=== PATIENT | female | born 1930 | race Caucasian/White ===

== ENCOUNTER 2017-05-28 07:30 | Emergency (ER) | payer BC ==
[2017-05-28 07:36] VITALS: BMI 31.2
[2017-05-28] MEDS ORDERED: KETOROLAC TROMETHAMINE 30 MG/1 ML VIAL IVPUSH ONE (08:00)
--- NOTE | 2017-05-28 08:11 | PDOC ---
History of Present Illness - General Chief Complaint: Pain Stated Complaint: PAIN Time Seen by Provider: 05/28/17 07:48 History Source: Patient - History of Present Illness Occurred: reports: other Severity: Yes: severe Lower Extremity Pain Location: left: knee Past History - Past Medical History Allergies/Adverse Reactions: Allergies Allergy/AdvReac Type Severity Reaction Status Date / Time albuterol Allergy Severe Hives Verified 05/28/17 07:38 morphine Allergy Severe Vomiting Verified 05/28/17 07:38 oxycodone Allergy Severe Vomiting Verified 05/28/17 07:38 Penicillins Allergy Severe Hives Verified 05/28/17 07:38 Sulfa (Sulfonamide Allergy Severe Vomiting Verified 05/28/17 07:38 Antibiotics) Home Medications: Ambulatory Orders Amlodipine Besylate [Norvasc -] 2.5 mg PO DAILY 05/28/17 Aspirin [ASA -] 81 mg PO DAILY 05/28/17 Cephalexin 250 mg PO BID 05/28/17 Cetirizine HCl [Zyrtec -] 10 mg PO DAILY 05/28/17 Cholecalciferol (Vitamin D3) [Vitamin D3 -] 2,000 unit PO DAILY 05/28/17 Levofloxacin [Levaquin] 500 mg PO BID 05/28/17 Losartan Potassium 50 mg PO TID 05/28/17 Montelukast Na [Singulair -] 10 mg PO HS 05/28/17 Pravastatin Sodium 20 mg PO DAILY 05/28/17 Cancer: Yes (breast, colon, skin, in remission) HTN: Yes Hypercholesterolemia: Yes - Surgical History Abdominal Surgery: Yes (colon resection) Appendectomy: Yes Cholecystectomy: Yes - Immunization History Immunization Up to Date: Yes - Psycho/Social/Smoking Cessation Hx Suicidal Ideation: No Smoking History: Never smoked Hx Alcohol Use: No Drug/Substance Use Hx: No Review of Systems - Review of Systems Constitutional: No: Chills, Fever Respiratory: No: Shortness of Breath Cardiac (ROS): No: Chest Pain Musculoskeletal: Yes: Joint Pain, Joint Swelling *Physical Exam - Vital Signs Last Vital Signs Temp Pulse Resp BP Pulse Ox 98.2 F 100 H 18 162/79 99 05/28/17 07:32 05/28/17 07:32 05/28/17 07:32 05/28/17 07:32 05/28/17 07:32 - Physical Exam General Appearance: Yes: Appropriately Dressed, Mild Distress HEENT: positive: Normal Voice Neck: positive: Supple Respiratory/Chest: negative: Respiratory Distress Extremity: positive: Tender, Swelling, Other (pain w/ ROM, no erythema or increased warmth) Integumentary: positive: Dry, Warm Neurologic: positive: Fully Oriented, Alert, Normal Mood/Affect ED Treatment Course - LABORATORY CBC & Chemistry Diagram: 05/28/17 08:10 05/28/17 08:10 Medical Decision Making - Medical Decision Making 05/28/17 08:07 87-year-old female, history of hypertension, on baby aspirin currently on Levaquin for UTI and states she takes Keflex prophylactically for uti otherwise , here complaining of worsening left knee pain 1 month. Has been seen by an orthopedics and given a "gel injection" with no relief and on a muscle relaxant at home, but states it does not help. States she is barely able to bear weight with her cane. States knee is also swollen. No fever or chills. No history of septic joint. No history of gout. PMD at [facility]: Dr Freedman [id number] See exam L knee pain and swelling Seen by ortho-had XR and given "gel injection" in clinic for "loss of cartilage " per pt No f/c Pt stable and well gisela w/ diffuse swelling to L knee, no hot, red joint M/l arthritis vs gout, less likely infectious -pain control -labs including uric acid/esr/crp -reassess 05/28/17 08:12 05/28/17 08:17 05/28/17 08:40 EKG ordered on pt erroneously by charge nurse. There is a RBBB w/ TWI in lead 111 and V3, no old to compare on record. Pt has no chest pain or sob. Cardiac enzyme sent. Do not see need to further pursue non-specific ekg changes in pt who is only here for L knee pain and no cardiac/resp symptoms. Will try and contact PMD for old ekg 05/28/17 09:36 Labs and XR unremarkable. Pt states pain has not improved. Able to bear weight w / cane in ED but painful. States she is unable to tolerate all narcotics (get n/ v/rash/dizziness/syncope). Son now informs me that he was able to call Dr. Quezada of orthopedic and made appointment for patient to be seen today at 2:30 PM. Would prefer to take patient home so that they can make appointment. Of note, ekg faxed from PMD's office demonstrates similar findings today, RBBB w/ TWI in leads 111 and V3. Dispo d/w ED attg and pt discharged in care of son 05/28/17 09:47 *DC/Admit/Observation/Transfer Diagnosis at time of Disposition: Knee pain, left Qualifiers: Chronicity: unspecified Qualified Code(s): M25.562 - Pain in left knee - Discharge Dispostion Condition at time of disposition: Unchanged/Unknown - Referrals Referrals: Eliazar Freedman [Primary Care Provider] - - Patient Instructions Printed Discharge Instructions: DI for Knee Pain Additional Instructions: Please follow up with orthopedics today as already scheduled
[2017-05-28] MEDS ORDERED: KETOROLAC TROMETHAMINE 30 MG/1 ML VIAL ONE (08:21)
[2017-05-28 08:23] LABS: EOSINOPHIL 2.1 % (0-4.5); MCH 32.8 pg (25.7-33.7); MCHC 34.4 g/dl (32.0-36.0); MEAN CELL VOLUME 95.4 fl (80-96); MEAN PLT VOLUME 6.9 fl (7.5-11.1); NEUTROPHILS 74.9 % (42.8-82.8); PLATELET COUNT 248 K/MM3 (134-434); RDW 17.5 % (11.6-15.6); WHITE BLOOD COUNT 7.7 K/mm3 (4.0-10.0)
[2017-05-28 08:46] LABS: C-REACTIVE PROTEIN 0.6 MG/DL (0.00-0.3); URIC ACID 3.3 mg/dL (2.6-7.2)
[2017-05-28 08:48] LABS: ALBUMIN 3.8 g/dl (3.4-5.0); ANION GAP 10 (8-16); BILIRUBIN,TOTAL 1.1 mg/dL (0.2-1.0); CALCIUM 8.9 mg/dL (8.5-10.1); CO2 25 mmol/L (21-32); CREATININE 0.8 mg/dL (0.55-1.02); GLUCOSE,RANDOM 117 mg/dL (74-106); SGOT/AST 16 U/L (15-37); SGPT/ALT 21 U/L (12-78); TOT PROT 6.9 g/dl (6.4-8.2)
[2017-05-28 08:50] LABS: ALK PHOS 65 U/L (45-117); CPK 89 IU/L (26-192); TROPONIN I < 0.02 ng/ml (0.00-0.05)
[2017-05-28 09:59] VITALS: BP 132/74; PULSE 68; TEMP 97.6
--- NOTE | 2017-05-28 10:07 | PDOC ---
*Physical Exam - Vital Signs Last Vital Signs Temp Pulse Resp BP Pulse Ox 97.6 F 68 16 132/74 98 05/28/17 09:58 05/28/17 09:58 05/28/17 09:58 05/28/17 09:58 05/28/17 09:58 ED Treatment Course - LABORATORY CBC & Chemistry Diagram: 05/28/17 08:10 05/28/17 08:10 - ADDITIONAL ORDERS Additional order review: Laboratory Results 05/28/17 05/28/17 05/28/17 08:18 08:18 08:10 Sodium 134 L Potassium 3.6 Chloride 99 Carbon Dioxide 25 Anion Gap 10 BUN 14 Creatinine 0.8 Creat Clearance w eGFR > 60 Random Glucose 117 H Uric Acid 3.3 Calcium 8.9 Total Bilirubin 1.1 H AST 16 ALT 21 Alkaline Phosphatase 65 Creatine Kinase 89 Troponin I < 0.02 C-Reactive Protein 0.6 H Cancelled Total Protein 6.9 Albumin 3.8 05/28/17 08:10 RBC 3.86 MCV 95.4 MCHC 34.4 RDW 17.5 H MPV 6.9 L Neutrophils % 74.9 Lymphocytes % 12.0 Monocytes % 10.0 Eosinophils % 2.1 Basophils % 1.0 - Medications Given in the ED: ED Medications Discontinued Medications Generic Name Dose Route Start Last Admin Trade Name Gama PRN Reason Stop Dose Admin Ketorolac Tromethamine 30 mg 05/28/17 08:00 05/28/17 08:19 Toradol Injection - IVPUSH 05/28/17 08:01 30 mg ONCE ONE Administration Medical Decision Making - Medical Decision Making 05/28/17 10:03 Patient seen and examined with LUIS Westfall. I agree with history, assessment, and plan. Summary as follows: 87-year-old female p/w left knee pain 1 month. Patient saw her orthopedic doctor who gave her a gel injection in clinic however she reports minimal improvement with the injection. Denies any fevers, chills, redness to her knee. She reports some swelling to the knee. On exam patient able to range although ranging is limited by pain and there is no redness to the joint. She is able to bear weight on her knee. Labs with no white count, normal ESR, and very mildly elevated CRP. Unlikely to be a septic joint. Patient's son was able to call her orthopedic surgeon who will see the patient today at 2 PM. Patient is stable for discharge. *DC/Admit/Observation/Transfer Diagnosis at time of Disposition: Knee pain, left Qualifiers: Chronicity: unspecified Qualified Code(s): M25.562 - Pain in left knee - Discharge Dispostion Disposition: HOME Condition at time of disposition: Stable - Referrals Referrals: Eliazar Freedman [Primary Care Provider] - - Patient Instructions Printed Discharge Instructions: DI for Knee Pain Additional Instructions: Please follow up with orthopedics today as already scheduled - Post Discharge Activity
--- NOTE | 2017-05-29 09:33 | EKG ---
Test Reason : Blood Pressure : / mmHG Vent. Rate : 098 BPM Atrial Rate : 098 BPM P-R Int : 170 ms QRS Dur : 130 ms QT Int : 370 ms P-R-T Axes : 028 067 005 degrees QTc Int : 472 ms NORMAL SINUS RHYTHM RIGHT BUNDLE BRANCH BLOCK ABNORMAL ECG NO PREVIOUS ECGS AVAILABLE Confirmed by AURE LINO MD ([id number]) on 05/29/2017 9:32:49 AM Referred By: Confirmed By:AURE LINO MD
== END 2017-05-28 10:03 | disposition home or self-care (01) ==
LOC: JER 07:30
PROC: 3E0333Z Introduction of Anti-inflammatory into Peripheral Vein, Percutaneous Approach (ICD-10-PCS; principal; 2017-05-28)
DX: M25.562 Pain in left knee (principal); I10 Essential (primary) hypertension; Z79.82 Long term (current) use of aspirin; Z85.3 Personal history of malignant neoplasm of breast; Z85.038 Personal history of other malignant neoplasm of large intestine; Z85.828 Personal history of other malignant neoplasm of skin; E78.00 Pure hypercholesterolemia, unspecified
CPT/HCPCS: 36415; 73560-TC-LT; 80053; 84484; 84550; 85025; 85651; 86140; 93005; 93010; 99282-25

== ENCOUNTER 2019-07-12 11:10 | Inpatient (IN) | payer BC, OTHER ==
--- NOTE | 2019-07-12 08:04 | HP ---
Satellite [facility] - Chief Complaint Chief Complaint: left knee pain - Past Medical History Allergies/Adverse Reactions: Allergies Allergy/AdvReac Type Severity Reaction Status Date / Time albuterol Allergy Severe Hives Verified 05/28/17 07:38 morphine Allergy Severe Vomiting Verified 05/28/17 07:38 oxycodone Allergy Severe Vomiting Verified 05/28/17 07:38 Penicillins Allergy Severe Hives Verified 05/28/17 07:38 Sulfa (Sulfonamide Allergy Severe Vomiting Verified 05/28/17 07:38 Antibiotics) seasonal Allergy Uncoded 07/04/19 16:55 - Current Medications Current Medications: Home Medications Medication Instructions Recorded Amlodipine Besylate [Norvasc -] 2.5 mg PO DAILY 05/28/17 Aspirin [ASA -] 81 mg PO DAILY 05/28/17 Cholecalciferol (Vitamin D3) 2,000 unit PO DAILY 05/28/17 [Vitamin D3 -] Losartan Potassium 50 mg PO TID 05/28/17 Montelukast Na [Singulair -] 10 mg PO HS 05/28/17 Pravastatin Sodium 20 mg PO DAILY 05/28/17 Satellite Physical Exam - Physical Examination General Appearance: Well Nourished, Well Developed, Alert & Oriented x3 ENT: Clear Lung: Normal air movement Heart: Regular rate & rhythm Extremities: Other (left knee- + swelling, + ttp, decr rom, nvi, xrays show grade 4 tricompartmental djd) Neurological: Intact, Alert, Oriented Satellite Impression/Plan - Impression/Plan Impression: left knee djd Operative Procedure: left jackie tkr Date to be Performed: 07/12/19
[~2019-07-12 11:10] MED LIST: CEFAZOLIN 2 GM in DEXTROSE 5%-WATER - 50 ML IVPB ONE; TRANEXAMIC ACID 1000 MG/10 ML VIAL IVPUSH ONE
[2019-07-12] MEDS ORDERED: ONDANSETRON 4 MG/2 ML VIAL ONE (12:02)
[2019-07-12] MEDS ORDERED: TRANEXAMIC ACID 1000 MG/10 ML VIAL ONE ×2 (12:02→13:04)
[2019-07-12] MEDS ORDERED: PROPOFOL 20 ML ONE ×2 (12:02)
[2019-07-12] MEDS ORDERED: MIDAZOLAM HCL 2 MG/2 ML SINGLE DOSE VIAL ONE ×2 (12:02→13:07)
[2019-07-12] MEDS ORDERED: DEXAMETHASONE SOD PHOSPHATE 4 MG/1 ML VIAL ONE (12:02)
[2019-07-12] MEDS ORDERED: BUPIVACAINE LIPOSOME/PF (EXPAREL) 266 MG/20 ML VIAL ONE (13:06)
[2019-07-12] MEDS ORDERED: VANCOMYCIN 1,000 MG VIAL (RESTRICTED TO ID ONLY) ONE (13:22)
[2019-07-12] MEDS ORDERED: ceFAZolin SODIUM 1 GM VIAL ONE (13:22)
[2019-07-12] MEDS ORDERED: MAG HYDROX/AL HYDROX/SIMETH 30 ML UNIT-DOSE CUP PO PRN (14:10)
[2019-07-12] MEDS ORDERED: MAGNESIUM HYDROX 2400MG/30ML ORAL SUSPENSION 30 ML CUP PO PRN (14:10)
[2019-07-12] MEDS ORDERED: LACTATED RINGERS SOLUTION 1,000 ML IV SCH (14:15)
[2019-07-12] MEDS ORDERED: PHENYLEPHRINE HCL 10 MG/1 ML SINGLE DOSE VIAL ONE (14:54)
[2019-07-12] MEDS ORDERED: HYDROmorphone HCL 2 MG TABLET PO PRN (15:03)
[2019-07-12] MEDS ORDERED: VANCOMYCIN 1,000 MG VIAL (RESTRICTED TO ID ONLY) IVPB ONE (15:26)
--- NOTE | 2019-07-12 15:55 | OP ---
Operative Note - Note: Operative Date: 07/12/19 Pre-Operative Diagnosis: left knee djd Operation: left jackie tkr Post-Operative Diagnosis: Same as Pre-op Surgeon: Bharathi Christensen Apprentice Funeral Director: Jordin Gomez Anesthesia: Spinal, Local Specimens Removed: bone fragments Estimated Blood Loss (mls): 100 Operative Report Dictated: Yes
[2019-07-12] MEDS: ACETAMINOPHEN 325 MG TABLET (FP) PO SCH ×2 (16:40→21:22)
[2019-07-12] MEDS: HYDROmorphone HCL 2 MG TABLET PO PRN (17:10)
--- NOTE | 2019-07-12 19:46 | SPEC ---
DATE OF OPERATION: 07/12/2019 PREOPERATIVE DIAGNOSIS: Degenerative joint disease, left knee. POSTOPERATIVE DIAGNOSIS: Degenerative joint disease, left knee. PROCEDURE: Left total knee replacement with robotic-assisted navigation (Makoplasty). SURGICAL ATTENDING: Bharathi Christensen M.D. HANDBAG STITCHER: Hawa Desouza ANESTHESIA: Regional and spinal. CLOSURE: A Triathlon cemented knee system with a 4 femur, 3 tibia, 9 polyethylene, 32 patella, number 1 Vicryl fascia, 0 and 2-0 subcutaneous, 3-0 Monocryl subcuticular with skin glue for skin, 4-0 undyed Vicryl for pin sites. ESTIMATED BLOOD LOSS: Less than 100 mL. COMPLICATIONS: None. CONDITION: To recovery room in stable condition. DESCRIPTION OF OPERATIVE PROCEDURE: Patient was taken to the operating room on July 12, 2019. Regional and general anesthesia was administered by the anesthesiologist. IV Kefzol and TXA were administered by the anesthesiologist. Well-padded pneumatic tourniquet was placed on the proximal thigh. The left lower extremity was prepped and draped in the usual sterile fashion. The leg was exsanguinated with an Esmarch bandage, and tourniquet was inflated to 275 mmHg. A 12 to 15-cm longitudinal midline incision was incised while centered over the patella. The dissection was carried down to the level of the extensor mechanism with sufficient flaps made to adequately perform the procedure. A medial parapatellar arthrotomy was then performed. We made a cuff of tissue on the patella for later closure. The patella was inverted, the knee was flexed up. The fat pad was excised. The subperiosteal dissection was on the anteromedial proximal tibia around towards the direction of the MCL. The ACL and the PCL were transected and debrided. The meniscal remnants of the medial and lateral meniscus were debrided and removed. This allowed the knee to be able to "be brought forward." The checkpoints were malleted into the tibia and into the femur. Two threaded pins were drilled anteroposteriorly proximal to the knee through the previous incision, through the anterior cortex, then just engaging the posterior cortex. To these pins was assembled the femoral navigation array. One handbreadth below the tibial tubercle, 2 stab incisions were used to drill 2 threaded pins in parallel fashion into the tibia, again through the anterior cortex and just engaging the posterior cortex. To these pins was fastened the tibial arrays. The knee was then registered with the navigation device with center of rotation of the hip, medial and lateral malleoli, both checkpoints, and multiple points on both the femur and the tibia to ensure excellent registration. The navigation device was directed off the "top of the bubbles" on both the femur and the tibia. The navigation passed within less than 0.5 mm to plan. The knee was then thoroughly inspected to remove all osteophytes both medially, laterally, and on the femur and the tibia, and whatever osteophytes were available for dissection. The knee was then taken to extension and to flexion, and stressed in both varus and valgus to assess flexion gaps. The virtual position of the components on the navigation device were then manipulated to optimize the position and to ensure equal gaps in both flexion and extension, and both medially and laterally. The robot was then brought into the field and was registered. The cuts were then made both on the femur and on the tibia as to plan. All osteophytes posteriorly were then removed as well. The gaps were then measured again in flexion and extension to be equal in both flexion and extension and medial and laterally. The femoral notch was then made, as we were doing a posterior stabilizing component, with the appropriate sized box. Trial reduction of the femur achieved excellent [id number] fit. A tibial baseplate of appropriate polyethylene thickness was "floated in the knee." It was ensured to be in the excellent position by navigation devices and was pinned in place. The knee was taken through a range of motion, and found to have excellent stability throughout flexion and extension. The patella was calibrated for thickness and osteotomized down to the appropriate level. The appropriate lollipop was used to drill the lug holes in the patella and the trial button was applied. The knee was taken through a range of motion and found to have excellent tracking of the patella, and patella from full extension to full flexion. Trial components were removed, the keel was punched and drilled, and a sclerotic bone on the tibia was drilled to help with cement interdigitation. The knee was thoroughly irrigated with the pulse antibiotic plastering supervisor. The real components were then cemented in using monitored arrangement cement techniques with antibiotic cement, and pressurization and extension. After the cement was hardened, the knee was thoroughly inspected to remove any extra cement. The real polyethylene component was then clipped into place. Range of motion, stability, and tracking were as described earlier. The checkpoints and the pins were removed. The knee was thoroughly irrigated with antibiotic irrigation. Vancomycin powder was placed into the knee for antibiotic prophylaxis. The medial parapatellar arthrotomy was then closed using number 1 Vicryl interrupted suture. After closure of the deep layer, the knee was taken through a range of motion, and found to have excellent stability of the patella with no dislocation and no undue tension on the repair. The subcutaneous was pulse antibiotic irrigated, and was then closed with 2-0 Vicryl, 3-0 Monocryl subcuticular with the skin glue for the skin. The distal tibial pin site was irrigated thoroughly as well and then closed with 4-0 undyed Vicryl. A sterile Aquacel dressing was applied, followed by a Mosley dressing. Tourniquet was deflated. Total tourniquet time was approximately 75 minutes. No complications. Patient was awakened from anesthesia and transferred to recovery room in stable condition. Postoperative x-rays revealed excellent position of the components. Soco MORALES/[id number]
[2019-07-12] MEDS: MONTELUKAST NA 10 MG TABLET PO SCH (21:22)
[2019-07-12] MEDS: traMADol HCL 50 MG TABLET PO PRN (21:22)
[2019-07-12] MEDS: SENNOSIDES/DOCUSATE COMBO (SENNA PLUS) TABLET (UD) PO SCH (21:22)
[2019-07-12] MEDS: CEFAZOLIN 2 GM/D5W 2 GM/50 ML ML IVPB SCH (21:22)
[2019-07-13] MEDS: traMADol HCL 50 MG TABLET PO PRN ×2 (03:00→07:33)
[2019-07-13] MEDS: ACETAMINOPHEN 325 MG TABLET (FP) PO SCH ×4 (03:10→21:05)
[2019-07-13] MEDS: HYDROmorphone HCL 2 MG TABLET PO PRN ×2 (06:21→12:01)
[2019-07-13] MEDS: CEFAZOLIN 2 GM/D5W 2 GM/50 ML ML IVPB SCH (06:22)
[2019-07-13] MEDS: ASPIRIN 325 MG TABLET PO SCH (07:31)
[2019-07-13 08:16] LABS: HEMATOCRIT 29.4 % (32.4-45.2); HEMOGLOBIN 9.9 GM/dl (10.7-15.3); MCHC 33.5 g/dl (32.0-36.0); MEAN CELL VOLUME 98.4 fl (80-96); MEAN PLT VOLUME 6.7 fl (7.5-11.1); PLATELET COUNT 296 K/MM3 (134-434); RBC 2.98 M/mm3 (3.60-5.2); RDW 19.3 % (11.6-15.6); WHITE BLOOD COUNT 9.8 K/mm3 (4.0-10.8)
[2019-07-13] MEDS: LOSARTAN POTASSIUM 50 MG TABLET (FP) PO SCH ×3 (09:12→21:05)
[2019-07-13] MEDS: SENNOSIDES/DOCUSATE COMBO (SENNA PLUS) TABLET (UD) PO SCH ×2 (09:13→21:04)
[2019-07-13] MEDS: PANTOPRAZOLE 40 MG TABLET (FP) PO SCH (09:13)
[2019-07-13] MEDS: MULTIVITAMINS (DAILY MVI) TABLET (FP) PO SCH (09:13)
[2019-07-13] MEDS: amLODIPine BESYLATE 2.5 MG TABLET (FP) PO SCH (09:13)
[2019-07-13] MEDS ORDERED: PATIENT'S OWN MEDICATION (NON-FORMULARY) (Pravastatin Sodium [Pravastatin Sodium] 20 MG) PO SCH (10:00)
--- NOTE | 2019-07-13 10:18 | PN ---
Progress Note (short form) - Note Progress Note: Ortho Pt seen and examined s/p left jackie tkr pod #1- c/o pain, difficulty ambulating Selected Entries 07/13/19 09:19 Temperature 97.5 F L Pulse Rate 89 Respiratory 18 Rate Blood Pressure 160/65 Laboratory Tests 07/13/19 07:25 WBC 9.8 Hgb 9.9 L Hct 29.4 L Plt Count 296 dressing c/d/i, calf soft, nt rom 0-20, nvi a/p will require admission for pain control and inability to ambulate PT dvt ppx pain control will need snf for d/c
[2019-07-13] MEDS: ONDANSETRON 4 MG/2 ML VIAL IVPUSH PRN ×2 (12:01→21:04)
--- NOTE | 2019-07-13 14:53 | PN ---
Progress Note (short form) - Note Progress Note: ANESTHESIA POSTOP 89 YO FEMALE POD#1 S/P LTKA, SPINAL, PNB Patient in PT. Says pain is better after medication but has some light headedness. She said meperidine has worked for her in the past. Tolerating PO. VSS, Afebrile Encouraged PT and IS. Will continue PO pain meds to help facilitate discharge when appropriate. No anesthetic complications.
--- NOTE | 2019-07-13 17:28 | PN ---
Progress Note, Physician Chief Complaint: AWAKE ALERT C/O PAIN POD#1 LEFT KNEE MERCED - Current Medication List Current Medications: Active Medications Acetaminophen (Tylenol -) 650 mg PO Q6H [facility] Stop: 07/15/19 15:14 Last Admin: 07/13/19 14:55 Dose: 650 mg Al Hydroxide/Mg Hydroxide (Mylanta Oral Suspension -) 30 ml PO Q4H PRN PRN Reason: DYSPEPSIA Amlodipine Besylate (Norvasc -) 2.5 mg PO DAILY [facility] Last Admin: 07/13/19 09:13 Dose: 2.5 mg Aspirin (Asa -) 325 mg PO DAILY@0800 [facility] Last Admin: 07/13/19 07:31 Dose: 325 mg Atorvastatin Calcium (Lipitor -) 10 mg PO [facility] Hydromorphone HCl (Dilaudid -) 1 mg PO Q4H PRN PRN Reason: PAIN LEVEL 4 - 6 Hydromorphone HCl (Dilaudid -) 2 mg PO Q4H PRN PRN Reason: PAIN LEVEL 7 - 10 Last Admin: 07/13/19 12:01 Dose: 2 mg Losartan Potassium (Cozaar -) 50 mg PO TID [facility] Last Admin: 07/13/19 14:55 Dose: 50 mg Magnesium Hydroxide (Milk Of Magnesia -) 30 ml PO PRN PRN PRN Reason: CONSTIPATION Montelukast Sodium (Singulair -) 10 mg PO [facility] Last Admin: 07/12/19 21:22 Dose: 10 mg Multivitamins/Minerals/Vitamin C (Tab-A-Vit -) 1 tab PO DAILY [facility] Last Admin: 07/13/19 09:13 Dose: 1 tab Ondansetron HCl (Zofran Injection) 4 mg IVPUSH Q6H PRN PRN Reason: NAUSEA Last Admin: 07/13/19 12:01 Dose: 4 mg Pantoprazole Sodium (Protonix -) 40 mg PO DAILY [facility] Last Admin: 07/13/19 09:13 Dose: 40 mg Senna/Docusate Sodium (Pericolace -) 2 tablet PO BID [facility] Last Admin: 07/13/19 09:13 Dose: 2 tablet Tramadol HCl (Ultram -) 50 mg PO Q3H PRN PRN Reason: PAIN LEVEL 1 - 3 Last Admin: 07/13/19 07:33 Dose: 50 mg - Objective Vital Signs: Vital Signs Temperature 97.4 F L 07/13/19 13:24 Pulse Rate 76 07/13/19 13:24 Respiratory Rate 18 07/13/19 13:24 Blood Pressure 139/60 07/13/19 13:24 O2 Sat by Pulse Oximetry (%) 98 07/13/19 07:44 Constitutional: Yes: Moderate Distress Cardiovascular: Yes: WNL Respiratory: Yes: WNL Gastrointestinal: Yes: Soft Genitourinary: Yes: WNL Musculoskeletal: Yes: Joint Swelling, Muscle Pain Extremities: Yes: Other Wound/Incision: Yes: Dressing Dry and Intact Neurological: Yes: WNL ...Motor Strength: LLE Psychiatric: Yes: WNL Labs: CBC, BMP 07/13/19 07:25 Problem List - Problems (1) Knee pain, left Code(s): M25.562 - PAIN IN LEFT KNEE Qualifiers: Chronicity: unspecified Qualified Code(s): M25.562 - Pain in left knee Assessment/Plan IV TYLENOL ADDED FOR PAIN CONTROL DILAUDID PEN DVT PROPHYLAXIS ON ASA 325MG DAILY PT EVAL, OOB TO CHAIR WITH ASSISTANCE ASTHMA STABLE WILL NEED PLACEMENT CHICE FOR PT WHIT ESCAMILLA
[2019-07-13] MEDS: ATORVASTATIN CA 10 MG TABLET (FP) PO SCH (21:04)
[2019-07-13] MEDS: ACETAMINOPHEN 1000 MG/100 ML VIAL (NON FORMULARY) IVPB PRN (21:05)
[2019-07-13] MEDS: MONTELUKAST NA 10 MG TABLET PO SCH (21:05)
[2019-07-14] MEDS: traMADol HCL 50 MG TABLET PO PRN (03:43)
[2019-07-14] MEDS: ACETAMINOPHEN 325 MG TABLET (FP) PO SCH ×3 (03:43→16:18)
[2019-07-14] MEDS: LOSARTAN POTASSIUM 50 MG TABLET (FP) PO SCH (06:26)
[2019-07-14 07:48] LABS: HEMOGLOBIN 9.9 GM/dl (10.7-15.3); MCH 33.2 pg (25.7-33.7); MEAN CELL VOLUME 97.6 fl (80-96); MEAN PLT VOLUME 6.7 fl (7.5-11.1); PLATELET COUNT 278 K/MM3 (134-434); RBC 2.97 M/mm3 (3.60-5.2); RDW 19.3 % (11.6-15.6); WHITE BLOOD COUNT 9.4 K/mm3 (4.0-10.8)
[2019-07-14 08:06] LABS: ALBUMIN 3.2 g/dl (3.4-5.0); BILIRUBIN,TOTAL 1.2 mg/dl (0.2-1); CALCIUM 8.7 mg/dl (8.5-10); CREATININE 0.5 mg/dl (0.55-1.3); MAGNESIUM 1.4 mg/dL (1.8-2.4); TOT PROT 5.5 g/dl (6.4-8.2)
--- NOTE | 2019-07-14 08:21 | PN ---
Progress Note (short form) - Note Progress Note: Ortho Pt seen and examined s/p left jackie tkr pod #2 Selected Entries 07/14/19 06:00 Temperature 98.0 F Pulse Rate 90 Respiratory 18 Rate Blood Pressure 156/71 Laboratory Tests 07/14/19 07:30 WBC 9.4 Hgb 9.9 L Hct 29.0 L Plt Count 278 dressing c/d/i, calf soft, nt rom 0-30, nvi a/p PT dvt ppx pain control will need snf for d/c
[2019-07-14] MEDS: ASPIRIN 325 MG TABLET PO SCH (08:32)
[2019-07-14] MEDS: ONDANSETRON 4 MG/2 ML VIAL IVPUSH PRN (08:36)
[2019-07-14] MEDS: SENNOSIDES/DOCUSATE COMBO (SENNA PLUS) TABLET (UD) PO SCH ×2 (09:30→21:15)
[2019-07-14] MEDS: PANTOPRAZOLE 40 MG TABLET (FP) PO SCH (09:30)
[2019-07-14] MEDS: MULTIVITAMINS (DAILY MVI) TABLET (FP) PO SCH (09:30)
[2019-07-14] MEDS: amLODIPine BESYLATE 2.5 MG TABLET (FP) PO SCH (09:31)
[2019-07-14] MEDS ORDERED: MAGNESIUM SULF 50% (8.12 MEQ/2 ML-1 GM VIAL) IVPB ONE ×2 (10:37→14:37)
--- NOTE | 2019-07-14 10:37 | PN ---
Progress Note, Physician Chief Complaint: seen and examined walked 15 feet knee feelts sore nausous no BM for 3 days - Current Medication List Current Medications: Active Medications Acetaminophen (Tylenol -) 650 mg PO Q6H [facility] Stop: 07/15/19 15:14 Last Admin: 07/14/19 09:31 Dose: Not Given Acetaminophen (Ofirmev Injection -) 1,000 mg IVPB Q6H PRN PRN Reason: PAIN LEVEL 6-10 Last Admin: 07/13/19 21:05 Dose: 1,000 mg Al Hydroxide/Mg Hydroxide (Mylanta Oral Suspension -) 30 ml PO Q4H PRN PRN Reason: DYSPEPSIA Amlodipine Besylate (Norvasc -) 2.5 mg PO DAILY [facility] Last Admin: 07/14/19 09:31 Dose: 2.5 mg Aspirin (Asa -) 325 mg PO DAILY@0800 [facility] Last Admin: 07/14/19 08:32 Dose: 325 mg Atorvastatin Calcium (Lipitor -) 10 mg PO [facility] Last Admin: 07/13/19 21:04 Dose: 10 mg Hydromorphone HCl (Dilaudid -) 1 mg PO Q4H PRN PRN Reason: PAIN LEVEL 4 - 6 Hydromorphone HCl (Dilaudid -) 2 mg PO Q4H PRN PRN Reason: PAIN LEVEL 7 - 10 Last Admin: 07/13/19 12:01 Dose: 2 mg Losartan Potassium (Cozaar -) 50 mg PO TID [facility] Last Admin: 07/14/19 06:26 Dose: 50 mg Magnesium Hydroxide (Milk Of Magnesia -) 30 ml PO PRN PRN PRN Reason: CONSTIPATION Montelukast Sodium (Singulair -) 10 mg PO [facility] Last Admin: 07/13/19 21:05 Dose: 10 mg Multivitamins/Minerals/Vitamin C (Tab-A-Vit -) 1 tab PO DAILY [facility] Last Admin: 07/14/19 09:30 Dose: 1 tab Ondansetron HCl (Zofran Injection) 4 mg IVPUSH Q6H PRN PRN Reason: NAUSEA Last Admin: 07/14/19 08:36 Dose: 4 mg Pantoprazole Sodium (Protonix -) 40 mg PO DAILY [facility] Last Admin: 07/14/19 09:30 Dose: 40 mg Senna/Docusate Sodium (Pericolace -) 2 tablet PO BID [facility] Last Admin: 07/14/19 09:30 Dose: 2 tablet Tramadol HCl (Ultram -) 50 mg PO Q3H PRN PRN Reason: PAIN LEVEL 1 - 3 Last Admin: 07/14/19 03:43 Dose: 50 mg - Objective Vital Signs: Vital Signs Temperature 97.7 F 07/14/19 09:29 Pulse Rate 93 H 07/14/19 09:29 Respiratory Rate 18 07/14/19 09:29 Blood Pressure 150/68 07/14/19 09:29 O2 Sat by Pulse Oximetry (%) 98 07/14/19 09:29 Constitutional: Yes: Calm Cardiovascular: Yes: Regular Rate and Rhythm, S1, S2 Respiratory: Yes: CTA Bilaterally Gastrointestinal: Yes: Normal Bowel Sounds, Soft Extremities: Yes: Other (left knee sweling aquacel dressing flip stocking to both legs) Neurological: Yes: Alert, Oriented Labs: CBC, BMP 07/14/19 07:30 07/14/19 07:30 Problem List - Problems (1) Knee pain, left Assessment/Plan: s/p left knee jackie PT analgesics pain control dvt ppx= aspirin 325mg 6 weeks Code(s): M25.562 - PAIN IN LEFT KNEE Qualifiers: Chronicity: unspecified Qualified Code(s): M25.562 - Pain in left knee (2) Constipation Assessment/Plan: miralax and senna Code(s): K59.00 - CONSTIPATION, UNSPECIFIED (3) HTN (hypertension) Assessment/Plan: [facility] Code(s): I10 - ESSENTIAL (PRIMARY) HYPERTENSION
[2019-07-14] MEDS ORDERED: MAGNESIUM SULFATE IN WATER 2 GM/50 ML IVPB IVPB ONE ×2 (10:45→15:00)
[2019-07-14] MEDS ORDERED: SODIUM CHLORIDE 1,000 ML IV SCH (10:45)
[2019-07-14] MEDS: POLYETHYLENE GLYCOL 3350 119 GM BTL PO ONE ×2 (11:58→11:59)
[2019-07-14 12:39] LABS: ALBUMIN 3.5 g/dl (3.4-5.0); BILIRUBIN,TOTAL 1.4 mg/dl (0.2-1); CALCIUM 8.9 mg/dl (8.5-10); CREATININE 0.7 mg/dl (0.55-1.3); POTASSIUM 3.7 mmol/L (3.5-5.1); TOT PROT 6.1 g/dl (6.4-8.2)
[2019-07-14] MEDS: ACETAMINOPHEN 1000 MG/100 ML VIAL (NON FORMULARY) IVPB PRN ×2 (14:59→21:15)
[2019-07-14] MEDS ORDERED: LOSARTAN POTASSIUM 50 MG TABLET (FP) PO ONE ×2 (16:00→17:00)
--- NOTE | 2019-07-14 16:58 | CONSULT ---
Consult - text type - Consultation Consultation Note: Renal consult for hyponatremia This is a Pt had a serum Na of 128 on 07-07-2019. She has been hospitlized several times in the past few months for UTI's and was told that her Na was low during those admissions. She was on salt tabs for some time. She denies any confusion, lethargy, weakness. She denies any smoking history but have have significant second hand smoke history. She continues to have pain in her left knee (operative knee). No sob, chest pain, fever or chills. PMHx: as above Allergies: as listed in EMR Family Hx: NC ROS: as per HPI Home Medications Medication Instructions Recorded Amlodipine Besylate [Norvasc -] 2.5 mg PO DAILY 05/28/17 Aspirin [ASA -] 81 mg PO DAILY 05/28/17 Cholecalciferol (Vitamin D3) 2,000 unit PO DAILY 05/28/17 [Vitamin D3 -] Losartan Potassium 50 mg PO TID 05/28/17 Montelukast Na [Singulair -] 10 mg PO HS 05/28/17 Pravastatin Sodium 20 mg PO DAILY 05/28/17 Vital Signs Temperature 98.4 F 07/14/19 14:36 Pulse Rate 95 H 07/14/19 14:36 Respiratory Rate 17 07/14/19 14:36 Blood Pressure 145/64 07/14/19 14:36 O2 Sat by Pulse Oximetry (%) 100 07/14/19 14:36 Intake & Output 07/11/19 07/12/19 07/13/19 07/14/19 23:59 23:59 23:59 23:59 Intake Total 1100 1330 700 Output Total 100 Balance 1000 1330 700 Weight 69.808 kg NAD awake and alert neck supple RRR CTA no LE edema CBC, BMP 07/14/19 07:30 07/14/19 11:59 Current Medications Acetaminophen (Tylenol -) 650 mg PO Q6H [facility]IA[facility] Stop: 07/15/19 15:14 Last Admin: 07/14/19 16:18 Dose: Not Given Acetaminophen (Ofirmev Injection -) 1,000 mg IVPB Q6H PRN PRN Reason: PAIN LEVEL 6-10 Last Admin: 07/14/19 14:59 Dose: 1,000 mg Al Hydroxide/Mg Hydroxide (Mylanta Oral Suspension -) 30 ml PO Q4H PRN PRN Reason: DYSPEPSIA Amlodipine Besylate (Norvasc -) 5 mg PO DAILY [facility] Aspirin (Asa -) 325 mg PO DAILY@0800 [facility] Last Admin: 07/14/19 08:32 Dose: 325 mg Atorvastatin Calcium (Lipitor -) 10 mg PO HS [facility] Last Admin: 07/13/19 21:04 Dose: 10 mg Hydromorphone HCl (Dilaudid -) 1 mg PO Q4H PRN PRN Reason: PAIN LEVEL 4 - 6 Hydromorphone HCl (Dilaudid -) 2 mg PO Q4H PRN PRN Reason: PAIN LEVEL 7 - 10 Last Admin: 07/13/19 12:01 Dose: 2 mg Losartan Potassium (Cozaar -) 100 mg PO DAILY [facility] Magnesium Hydroxide (Milk Of Magnesia -) 30 ml PO PRN PRN PRN Reason: CONSTIPATION Montelukast Sodium (Singulair -) 10 mg PO [facility] Last Admin: 07/13/19 21:05 Dose: 10 mg Multivitamins/Minerals/Vitamin C (Tab-A-Vit -) 1 tab PO DAILY [facility] Last Admin: 07/14/19 09:30 Dose: 1 tab Ondansetron HCl (Zofran Injection) 4 mg IVPUSH Q6H PRN PRN Reason: NAUSEA Last Admin: 07/14/19 08:36 Dose: 4 mg Pantoprazole Sodium (Protonix -) 40 mg PO DAILY [facility] Last Admin: 07/14/19 09:30 Dose: 40 mg Senna/Docusate Sodium (Pericolace -) 2 tablet PO BID [facility] Last Admin: 07/14/19 09:30 Dose: 2 tablet Tramadol HCl (Ultram -) 50 mg PO Q3H PRN PRN Reason: PAIN LEVEL 1 - 3 Last Admin: 07/14/19 03:43 Dose: 50 mg 89 year old woman with history of chronic hyponatremia, hypertension, osteoarthritis, hyperlipidemia who presented for [facility] TKR and noted to have hyponatremia with serum na of 123. 1. 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 S/o TKR 3. Pain 4. Hypertension 5. 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
[2019-07-14] MEDS: SODIUM CHLORIDE 1 GM TABLET PO SCH ×2 (17:21→21:16)
[2019-07-14 17:24] LABS: HYALINE CASTS 20 /lpf (0-8); URINE APPEARANCE TURBID; URINE BACTERIA 16.9 /hpf (NEGATIVE); URINE BILIRUBIN NEGATIVE (NEGATIVE); URINE COLOR YELLOW; URINE GLUCOSE (UA) 2+ (NEGATIVE); URINE KETONE NEGATIVE (NEGATIVE); URINE LEUK ESTERASE 3+ (NEGATIVE); URINE NITRITE NEGATIVE (NEGATIVE); URINE PROTEIN 2+ (NEGATIVE); URINE UROBILINOGEN 0.2 mg/dL (0.2-1.0); URINE WBC 4288 /hpf (0-5)
[2019-07-14 18:18] LABS: URINE RBC 50-100 /hpf (0-4); YEAST NEGATIVE (NEGATIVE)
[2019-07-14] MEDS ORDERED: CEFAZOLIN 1 GM in DEXTROSE 5%-WATER - 50 ML IVPB ONE (18:30)
[2019-07-14] MEDS ORDERED: ceFAZolin SODIUM 1 GM VIAL ONE (18:59)
[2019-07-14] MEDS ORDERED: DEXTROSE 5%-WATER - 50 ML IVPB ONE (18:59)
[2019-07-14] MEDS: MONTELUKAST NA 10 MG TABLET PO SCH (21:16)
[2019-07-14] MEDS: ATORVASTATIN CA 10 MG TABLET (FP) PO SCH (22:45)
[2019-07-15] MEDS: ACETAMINOPHEN 325 MG TABLET (FP) PO SCH ×3 (03:20→08:20)
[2019-07-15 07:46] LABS: BILIRUBIN,TOTAL 1.1 mg/dl (0.2-1); CALCIUM 8.6 mg/dl (8.5-10); CREATININE 0.6 mg/dl (0.55-1.3); MAGNESIUM 1.9 mg/dL (1.8-2.4); POTASSIUM 3.6 mmol/L (3.5-5.1); TOT PROT 5.5 g/dl (6.4-8.2)
--- NOTE | 2019-07-15 08:19 | PN ---
Progress Note (short form) - Note Progress Note: Ortho Pt seen and examined s/p left jackie tkr pod #3 Laboratory Tests 07/14/19 07/15/19 07:30 07:15 WBC 9.4 Hgb 9.9 L Hct 29.0 L Plt Count 278 Sodium 124 L dressing c/d/i, calf soft, nt rom 0-40, nvi a/p ABx for uti PT dvt ppx pain control if ok with med/neph can be d/c'd to snf
[2019-07-15] MEDS: ASPIRIN 325 MG TABLET PO SCH (08:20)
[2019-07-15] MEDS: SODIUM CHLORIDE 1 GM TABLET PO SCH (09:21)
[2019-07-15] MEDS: PANTOPRAZOLE 40 MG TABLET (FP) PO SCH (09:21)
[2019-07-15] MEDS: MULTIVITAMINS (DAILY MVI) TABLET (FP) PO SCH (09:21)
[2019-07-15] MEDS ORDERED: MAGNESIUM OXIDE 400 MG TABLET (FP) PO SCH (10:00)
[2019-07-15] MEDS ORDERED: amLODIPine BESYLATE 5 MG TABLET (FP) PO SCH (10:00)
[2019-07-15] MEDS ORDERED: LOSARTAN POTASSIUM 50 MG TABLET (FP) PO SCH (10:00)
[2019-07-15] MEDS ORDERED: POTASSIUM CHLORIDE TABS 10 MEQ TABLET.ER (FP) PO SCH (10:00)
[2019-07-15] MEDS ORDERED: CIPROFLOXACIN 250 MG TABLET (RESTRICTED TO ID) PO SCH (10:15)
--- NOTE | 2019-07-15 10:33 | DS ---
Physical Examination Vital Signs: Vital Signs Temperature 97.6 F 07/15/19 09:23 Pulse Rate 89 07/15/19 09:23 Respiratory Rate 18 07/15/19 09:23 Blood Pressure 121/52 L 07/15/19 09:23 O2 Sat by Pulse Oximetry (%) 98 07/15/19 09:23 Findings/Remarks: NO CP OR SOB INTERMITTENT KNEE PAIN Cardiovascular: Yes: Regular Rate and Rhythm Respiratory: Yes: Regular, CTA Bilaterally Gastrointestinal: Yes: Normal Bowel Sounds, Soft Labs: CBC, BMP 07/14/19 07:30 07/15/19 07:15 Discharge Summary Reason For Visit: LT TOTAL KNEE REPLACEMENT Current Active Problems Constipation (Acute) HTN (hypertension) (Acute) Hospital Course: 89 Y/O Y/O FEMALE WITH H/O HTN S/P KNEE REPLACEMT POSTOP PT WITH ELECTROLYTE ABNORMALITIES WHICH WERE REPLENISHED PT CONTINUES WITH HYPONATREMIA AND REQUIRES CLOSE MONITORING PT NEEDS TO CONTINUE WITH FLUID RESTRICTION AND NA TABS LABS ON THURSDAY Condition: Good - Instructions Diet, Activity, Other Instructions: Post-op Instructions-Total Knee Replacement Call the office for a follow-up appointment in 1 week - [phone] Aspirin 325mg daily for 6 weeks. Pain medication was sent into your pharmacy. Apply Graduated Compression Stockings (TEDs) to both lower extremities- remove daily for hygiene ONLY Apply Sequential Compression Device (SCDs) to both Lower extremities remove for PT and hygiene ONLY Apply cold packs to affected area for 15 minutes every 2 hours. Physical Therapist will come to your home for the first 5 days. You will be set up with outpatient PT at your first post-operative visit. Patient may ambulate as tolerated-encourage self care (at least every 2-3 hours while awake) with walker or cane Maintain Aquacel (waterproof) dressing to operative wound (will be removed by surgeon at first office visit) Shower with Aquacel dressing in place-if Aquacel integrity compromised, remove and apply dry sterile dressing and notify Orthopedist. DO NOT SHOWER unless Orthopedists approves without Aquacel dressing CONTACT THE OFFICE FOR ANY CHANGE IN YOUR CONDITION (for example-fever greater than 102 degrees, excessive bleeding from operative site, purulent drainage, severe swelling or pain) GO TO THE EMERGENCY ROOM IF THERE IS A MEDICAL EMERGENCY Knee Precautions: * Keep a rolled towel under affected heel while in bed or chair (to keep knee in extension) * Keep affected leg elevated except during mealtimes * DO NOT PLACE PILLOW UNDER AFFECTED KNEE * If you have any questions, please do not hesitate to call the office - [phone]. BUS ON THURSDAY AND 3 TIME A WEEK FOLLOW UP WITH DR RAMSEY MARTINEZ NEXT WEEK Referrals: Bharathi Christensen MD [Staff Physician] - Albaro Thomson MD [Staff Physician] - 1 Week - Home Medications Comprehensive Discharge Medication List: Ambulatory Orders Amlodipine Besylate [Norvasc -] 2.5 mg PO DAILY 05/28/17 Cholecalciferol (Vitamin D3) [Vitamin D -] 2,000 unit PO DAILY 05/28/17 Losartan Potassium 50 mg PO TID 05/28/17 Montelukast Na [Singulair -] 10 mg PO HS 05/28/17 Pravastatin Sodium 20 mg PO DAILY 05/28/17 Acetaminophen [Tylenol .Regular Strength -] 650 mg PO Q6H tablet 07/15/19 Aspirin [ASA -] 325 mg PO DAILY@0800 tablet 07/15/19 Ciprofloxacin [Cipro -] 250 mg PO BID tablet 07/15/19 Mag Hydrox/Al Hydrox/Simeth [Mylanta Oral Suspension -] 30 ml PO Q4H PRN cup Magnesium Oxide [Mag-Ox -] 400 mg PO BID tablet 07/15/19 Multivitamins [Multivit ([facility] Formulary)] 1 tab PO DAILY tab 07/15/19 Pantoprazole Sodium [Protonix -] 40 mg PO DAILY tablet.ec 07/15/19 Potassium Chloride [K-Dur -] 10 meq PO DAILY tablet.er 07/15/19 Sennosides/Docusate Sodium [Pericolace -] 2 tablet PO BID tablet 07/15/19 Sodium Chloride Tablet - 1 gm PO BID tablet 07/15/19
[2019-07-15] MEDS ORDERED: PT OWN MED DRAWER 7, Y5N ONE (10:58)
[2019-07-15] MEDS: SENNOSIDES/DOCUSATE COMBO (SENNA PLUS) TABLET (UD) PO SCH (11:19)
[2019-07-15 14:10] VITALS: BP 127/51; PULSE 96; TEMP 97.5
--- NOTE | 2019-07-15 14:51 | PN ---
Progress Note (short form) - Note Progress Note: Renal follow up for Hyponatremia Seen and examined at the bedside reports continued pain in knee denies any confusion, lethargy, weakness or seizures tolerating oral diet, no N/V on fluid restriction and salt tabs Vital Signs Temperature 97.5 F L 07/15/19 14:09 Pulse Rate 96 H 07/15/19 14:09 Respiratory Rate 16 07/15/19 14:09 Blood Pressure 127/51 L 07/15/19 14:09 O2 Sat by Pulse Oximetry (%) 100 07/15/19 14:09 Intake & Output 07/12/19 07/13/19 07/14/19 07/15/19 23:59 23:59 23:59 23:59 Intake Total 1100 1330 900 450 Output Total 100 200 Balance 1000 1330 700 450 Weight 69.808 kg NAD MMM RRR CTA no LE edema CBC, BMP 07/14/19 07:30 07/15/19 07:15 Current Medications Acetaminophen (Tylenol -) 650 mg PO Q6H [facility] Stop: 07/15/19 15:14 Last Admin: 07/15/19 08:20 Dose: 650 mg Acetaminophen (Ofirmev Injection -) 1,000 mg IVPB Q6H PRN PRN Reason: PAIN LEVEL 6-10 Last Admin: 07/14/19 21:15 Dose: 1,000 mg Al Hydroxide/Mg Hydroxide (Mylanta Oral Suspension -) 30 ml PO Q4H PRN PRN Reason: DYSPEPSIA Amlodipine Besylate (Norvasc -) 5 mg PO DAILY [facility] Last Admin: 07/15/19 09:21 Dose: 5 mg Aspirin (Asa -) 325 mg PO DAILY@0800 [facility] Last Admin: 07/15/19 08:20 Dose: 325 mg Atorvastatin Calcium (Lipitor -) 10 mg PO HS [facility] Last Admin: 07/14/19 22:45 Dose: 10 mg Ciprofloxacin (Cipro (Restricted To Id)) 250 mg PO BID [facility] Last Admin: 07/15/19 10:48 Dose: 250 mg Hydromorphone HCl (Dilaudid -) 1 mg PO Q4H PRN PRN Reason: PAIN LEVEL 4 - 6 Hydromorphone HCl (Dilaudid -) 2 mg PO Q4H PRN PRN Reason: PAIN LEVEL 7 - 10 Last Admin: 07/13/19 12:01 Dose: 2 mg Losartan Potassium (Cozaar -) 100 mg PO DAILY [facility] Last Admin: 07/15/19 09:21 Dose: 100 mg Magnesium Hydroxide (Milk Of Magnesia -) 30 ml PO PRN PRN PRN Reason: CONSTIPATION Magnesium Oxide (Mag-Ox -) 400 mg PO BID [facility] Last Admin: 07/15/19 10:49 Dose: 400 mg Montelukast Sodium (Singulair -) 10 mg PO HS [facility] Last Admin: 07/14/19 21:16 Dose: 10 mg Multivitamins/Minerals/Vitamin C (Tab-A-Vit -) 1 tab PO DAILY [facility] Last Admin: 07/15/19 09:21 Dose: 1 tab Ondansetron HCl (Zofran Injection) 4 mg IVPUSH Q6H PRN PRN Reason: NAUSEA Last Admin: 07/14/19 08:36 Dose: 4 mg Pantoprazole Sodium (Protonix -) 40 mg PO DAILY [facility] Last Admin: 07/15/19 09:21 Dose: 40 mg Potassium Chloride (K-Dur -) 10 meq PO DAILY [facility] Last Admin: 07/15/19 10:48 Dose: 10 meq Senna/Docusate Sodium (Pericolace -) 2 tablet PO BID [facility] Last Admin: 07/15/19 11:19 Dose: Not Given Sodium Chloride (Sodium Chloride Tablet -) 1 gm PO BID [facility] Last Admin: 07/15/19 09:21 Dose: 1 gm Tramadol HCl (Ultram -) 50 mg PO Q3H PRN PRN Reason: PAIN LEVEL 1 - 3 Last Admin: 07/14/19 03:43 Dose: 50 mg 89 year old woman with history of chronic hyponatremia, hypertension, osteoarthritis, hyperlipidemia who presented for [facility] TKR and noted to have hyponatremia with serum na of 123. 1. 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 S/o TKR 3. Pain 4. Hypertension 5. Hyperlipideima Serum Na is stable at this time Pt does not have any neurological defects that would warrant hypertonic saline Urine studies indicative of SIADH Etiology of SIADH is unclear at this time TSH is WNL, Cortisol is pending Will need imaging studies of the chest/abd/pelvis is hyponatremia persists but can be done as an outpatient continue salt tabs 1g BID and 1L fluid restriction if sdischarged labs should be repeated early next week office contact information provided to make outpatient follow up Thank you Albaro Thomson DO
--- NOTE | 2019-07-18 17:16 | PATH ---
Surgical Pathology Report Patient Name: BRANDI DAVIDSON Med. Rec. #: [id number] /Age/Gender: 1930 (Age: 89) / F Account: [id number] Location: [facility] Taken: 07/12/2019 Received: 07/12/2019 Reported: 07/18/2019 Physicians: Bharathi Christensen M.D. 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 Electronically Signed Regina Wise M.D. Gross Description Received in formalin labeled "left knee bone," is an 7.0 x 4.0 x 3.0 cm aggregate of multiple portions of bone and one portion of soft tissue, consistent with knee bones. The bone surface shows areas of eburnation. The remaining articular surfaces are mayes-yellow and diffusely granular. The underlying trabecular bone is yellow and hard. Hotel Manager sections are submitted in one cassette, following decalcification. BOUCHRA/07/14/2019 sudhir/07/14/2019
== END 2019-07-15 15:25 | DRG 470 ==
LOC: FASUSAT 11:10 → FASU 11:11 → FM/S 17:05 → FASUSAT 07-13 10:36 → FM/S 07-13 22:05
PROVIDERS: ADMIT Orthopaedic Surgery; ATTEND Orthopaedic Surgery
PROC: 0SRD0JA Replacement of Left Knee Joint with Synthetic Substitute, Uncemented, Open Approach (ICD-10-PCS; principal; 2019-07-12 14:30)
DX: M17.12 Unilateral primary osteoarthritis, left knee (principal); E22.2 Syndrome of inappropriate secretion of antidiuretic hormone; N39.0 Urinary tract infection, site not specified; I10 Essential (primary) hypertension; K59.09 Other constipation; E83.42 Hypomagnesemia; M25.562 Pain in left knee; E78.5 Hyperlipidemia, unspecified
CPT/HCPCS: 36415; 73560-TC-LT-FY; 80048; 80053; 81003; 82533; 83735; 83930; 83935; 84300; 84443; 85027; 87077; 87086; 88305-TC; 88311-TC; 94760; 97116-GP; 97163-GP; J0131